=== PATIENT | female | born 1980 | race Caucasian/White ===

== ENCOUNTER 2016-10-20 09:52 | Emergency (ER) | payer BC ==
--- NOTE | 2016-10-20 11:57 | ER Document Report ---
HPI - HPI Patient complains to provider of: neck pain Onset: This morning Onset/Duration: Sudden Pain Level: 3 Context: Patient presents to the emergency department with complaints of right-sided neck pain. Patient reports she reached down to grab a lbottle of water this morning and felt pain in the right side of her neck. She took her Soma, Valium , and Motrin before coming to the emergency department. 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 She denies trauma. She denies other symptoms such as fever vomiting diarrhea. Patient reports it hurts when she turns her head to the right. Associated Symptoms: None Exacerbated by: Movement Relieved by: Denies Similar symptoms previously: No Recently seen / treated by doctor: No - REPRODUCTIVE Reproductive: DENIES: : - DERM Skin Color: Normal Past Medical History - General Information source: Patient Last Menstrual Period: 10/14/16 - Social History Smoking Status: Former Smoker Chew tobacco use (# tins/day): No Frequency of alcohol use: None Drug Abuse: None Lives with: Family Family History: Reviewed & Not Pertinent Patient has suicidal ideation: No Patient has homicidal ideation: No Renal/ Medical History: Denies: Hx Peritoneal Dialysis Musculoskeltal Medical History: Reports Hx Arthritis - RA, chronic pain Psychiatric Medical History: Reports: Hx Anxiety, Hx Depression Past Surgical History: Reports: Hx Appendectomy, Hx Orthopedic Surgery - x2 - Immunizations Hx Diphtheria, Pertussis, Tetanus Vaccination: Yes Vertical Provider Document - CONSTITUTIONAL Agree With Documented VS: Yes Exam Limitations: No Limitations General Appearance: WD/WN, Mild Distress - winces when turning head to the right - INFECTION CONTROL TRAVEL OUTSIDE OF THE [place] IN LAST 30 DAYS: No - HEENT HEENT: Atraumatic, Normocephalic - NECK Neck: Normal Inspection - No obvious deformity noted no vertebral tenderness complaints of right trapezius neck pain no erythema no warmth no swelling no weakness noted in reports pain when turning her head to the right. 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 She reports she tried to call Dr. Garnett but he did not have an opening. Patient was instructed to continue her medications as prescribed. (soma, valium, motrin) She was also instructed to follow up with Dr. Ruiz. - Vital Signs Vital signs: Temp Pulse Resp BP Pulse Ox 97.6 F 100 16 117/78 98 10/20/16 09:59 10/20/16 09:59 10/20/16 09:59 10/20/16 09:59 10/20/16 09:59 Discharge - Discharge Clinical Impression: Neck pain Condition: Stable Disposition: HOME, SELF-CARE Instructions: Neck Injury (Cervical Strain) ([facility]) Additional Instructions: *You have been evaluated for neck pain, strain *Rest/ alternate ice packs with warm packs *Follow up with Dr Ruiz tomorrow, call for an appointment *Take your medication as prescribed *Return to ED for worsening condition, changes, needs Referrals: TAHIRA COX MD [Primary Care Provider] - Follow up in 3-5 days
[2016-10-20 12:10] VITALS: BP 104/70
== END 2016-10-20 12:10 | disposition home or self-care (01) ==
LOC: ER 09:52
DX: M54.2 Cervicalgia (principal); M06.9 Rheumatoid arthritis, unspecified; Z87.891 Personal history of nicotine dependence; Z79.899 Other long term (current) drug therapy; Z79.1 Long term (current) use of non-steroidal anti-inflammatories (NSAID)
CPT/HCPCS: 99283

== ENCOUNTER 2016-11-28 08:44 | Emergency (ER) | payer BC ==
[2016-11-28] MEDS ORDERED: NORMAL SALINE 1000 ML 1,000 ML IV ONE ×2 (09:28)
--- NOTE | 2016-11-28 09:28 | ER Document Report ---
ED GI/ - General Chief Complaint: Abdominal Pain Stated Complaint: ABDOMINAL PAIN Time seen by provider: 09:21 Mode of Arrival: Ambulatory Information source: Patient Notes: 35-year-old female presents to ED for right upper quadrant abdominal pain radiating to the center of the abdomen with nausea vomiting. States she's had this pain for about 3 weeks she was supposed to go and get ultrasound blood work done for her primary doctor but had not gotten it done yet last night she started vomiting she says the pain is worse today. She was told to come him to the emergency room. Last menstrual period was 11/13/2016 TRAVEL OUTSIDE OF THE [place] IN LAST 30 DAYS: No - HPI Patient complains to provider of: Abdominal pain, Vomiting Onset: Other - 3 weeks worse the last couple days Timing/Duration: Gradual Quality of pain: Cramping, Sharp Severity at maximum: Moderate Severity in ED: Moderate Pain Level: 3 Location: RUQ Vaginal bleeding (Compared to normal period): None LMP: 11/13/2016 Associated symptoms: Nausea, Vomiting Exacerbated by: Food Relieved by: Denies Similar symptoms previously: Yes Recently seen / treated by doctor: Yes - Related Data Allergies/Adverse Reactions: aspirin [Aspirin] Allergy (Verified 11/28/16 08:47) codeine [Codeine] Allergy (Verified 11/28/16 08:47) hydrocodone bitartrate [From Vicodin] Allergy (Verified 11/28/16 08:47) hydromorphone HCl [From Dilaudid] Allergy (Verified 11/28/16 08:47) sulfasalazine [Sulfasalazine] Allergy (Verified 11/28/16 08:47) duloxetine HCl [From Cymbalta] Adverse Reaction (Verified 11/28/16 08:47) Hallucinations gabapentin [Gabapentin] Adverse Reaction (Verified 11/28/16 08:47) Hallucinations pregabalin [From Lyrica] Adverse Reaction (Verified 11/28/16 08:47) Hallucinations Past Medical History - General Information source: Patient - Social History Smoking Status: Former Smoker Frequency of alcohol use: None Drug Abuse: None Lives with: Family Family History: Arthritis, DM, Hyperlipidemia, Hypertension, Malignancy Patient has suicidal ideation: No Patient has homicidal ideation: No - Past Medical History Cardiac Medical History: Reports: Other - Schulz, orthostatic hypotension Pulmonary Medical History: Reports: None EENT Medical History: Reports: None Neurological Medical History: Reports: None Endocrine Medical History: Reports: None Renal/ Medical History: Reports: None Malignancy Medical History: Reports: None GI Medical History: Reports: None Musculoskeltal Medical History: Reports Hx Arthritis - RA, chronic pain Skin Medical History: Reports None Psychiatric Medical History: Reports: Hx Anxiety, Hx Depression Traumatic Medical History: Reports: None Infectious Medical History: Reports: None Past Surgical History: Reports: Hx Appendectomy, Hx Gynecologic Surgery - Leap procedure, Hx Orthopedic Surgery - Ganglion cyst and knee surgery to straighten her knee caps x2 - Immunizations Hx Diphtheria, Pertussis, Tetanus Vaccination: Yes Review of Systems - Review of Systems Constitutional: No symptoms reported EENT: No symptoms reported Cardiovascular: No symptoms reported Respiratory: No symptoms reported Gastrointestinal: Abdominal pain, Nausea, Vomiting Genitourinary: No symptoms reported Female Genitourinary: No symptoms reported Musculoskeletal: No symptoms reported Skin: No symptoms reported Hematologic/Lymphatic: No symptoms reported Neurological/Psychological: No symptoms reported Physical Exam - Vital signs Vitals: Temp Pulse Resp BP Pulse Ox 98.2 F 97 18 125/80 99 11/28/16 08:47 11/28/16 08:47 11/28/16 08:47 11/28/16 08:47 11/28/16 08:47 Interpretation: Normal - General General appearance: Appears well, Alert - HEENT Head: Normocephalic, Atraumatic Eyes: Normal Pupils: PERRL - Respiratory Respiratory status: No respiratory distress Chest status: Nontender Breath sounds: Normal Chest palpation: Normal - Cardiovascular Rhythm: Regular Heart sounds: Normal auscultation Murmur: No - Abdominal Inspection: Normal Distension: No distension Bowel sounds: Normal Tenderness: Tender - Right upper condyle quadrant to the Center Organomegaly: No organomegaly - Back Back: Normal, Nontender - Extremities General upper extremity: Normal inspection, Nontender, Normal color, Normal ROM , Normal temperature General lower extremity: Normal inspection, Nontender, Normal color, Normal ROM , Normal temperature, Normal weight bearing. No: Woody's sign - Neurological Neuro grossly intact: Yes Cognition: Normal Orientation: AAOx4 Marcelo Coma Scale Eye Opening: Spontaneous [place] Coma Scale Verbal: Oriented [place] Coma Scale Motor: Obeys Commands Marcelo Coma Scale Total: 15 Speech: Normal Motor strength normal: LUE, RUE, LLE, RLE Sensory: Normal - Psychological Associated symptoms: Normal affect, Normal mood - Skin Skin Temperature: Warm Skin Moisture: Dry Skin Color: Normal Course - Re-evaluation Re-evalutation: 11/28/16 12:[address] carrion concerning the symptoms and her history and ultrasound limited study of abdomen was ordered. Labs and ultrasound results discussed with patient and written reports given to patient and for them to follow-up with the primary doctor Angie and the GI doctor. Patient was treated with IV fluids and IV Zofran and Toradol and IV morphine. Patient was discharged home with small prescription for Percocet and instructed to please call Angie today - Vital Signs Vital signs: Temp Pulse Resp BP Pulse Ox 98.2 F 97 18 125/80 99 11/28/16 08:47 11/28/16 08:47 11/28/16 08:47 11/28/16 08:47 11/28/16 08:47 - Laboratory Result Diagrams: 11/28/16 09:30 11/28/16 09:30 Laboratory results interpreted by me: 11/28/16 11/28/16 09:30 10:05 Hct 34.9 L Seg Neutrophils % 34.1 L Lymphocytes % 52.4 H Urine Ascorbic Acid 40 H - Diagnostic Test Radiology reviewed: Image reviewed, Reports reviewed Discharge - Discharge Clinical Impression: Upper abdominal pain Condition: Stable Disposition: HOME, SELF-CARE Instructions: Evaluation of Upper Abdominal Pain ([facility]) Additional Instructions: NORMAL EXAM AND WORKUP: At this time, your examination and workup show no significant abnormality. No significant abnormal physical findings are noted. All laboratory, EKG, and imaging (x-ray, CT scans, ultrasound) studies that were ordered show no significant abnormality. Although your examination and all studies that were ordered showed no significant abnormal finding, there are no examinations and no studies that are 100% accurate. There is always the possibility that some abnormality could exist and not be detected with physical examination or within the limits and capabilities of laboratory and other studies. You should return or follow up as you were instructed on your visit today for further evaluation if your symptoms do not resolve. TORADOL INJECTION: You have been given an injection of ketorolac tromethamine (Toradol). This is an excellent, safe drug for pain control. It also has potent antiinflammatory action. You should have significant pain relief within about one hour. Toradol is not addicting and is non-sedating. It does not interfere with driving or work. Call or return if you develop itching, hives, shortness of breath, or rash. PAIN MEDICATION INJECTION: You have received an injection of a pain medication. You should experience significant pain relief within 45 minutes. This drug is a narcotic - - it will impair your judgement, slow your reaction time and make you sleepy ( as well as relieve your pain). Narcotics also can cause nausea. You should not drive, work with machinery, or perform any task requiring mental alertness until all effects of the medication are gone -- six to eight hours. Do not take any alcohol, or sedatives, and do not take any other medication without checking with your physician. AN[place] MEDICATION: You have been given a medication to suppress nausea and vomiting. This type of medication can be given as a shot, pill, or suppository. It will usually last for many hours. Pills and shots usually last six to eight hours, suppositories last about 12 hours. For the typical illness, only one or two doses of the medication may be necessary. Mild lightheadedness may occur. This type of medicine can cause drowsiness. Do not drive or operate dangerous machinery while under its influence. Do not mix with alcohol. See your doctor at once if you have muscle spasms or tightness, or uncontrollable motions (particularly of the neck, mouth, or jaw). Persistent vomiting or severe lightheadedness should also be evaluated by the physician. Intravenous (IV) Fluids As part of your care today, you received intravenous (IV) fluids. IV fluids are administered to patients who are dehydrated or to those who have certain chemical (electrolyte) abnormalities that need correcting. Oral Narcotic Medication You have been given a prescription for pain control. This medication is a narcotic. It's best taken with food, as nausea can result if taken on an empty stomach. Don't operate machinery or drive within six hours of taking this medication. Do not combine this medicine with alcohol, or with any medication which can cause sedation (such as cold tablets or sleeping pills) unless you get permission from the physician. Narcotics tend to cause constipation. If possible, drink plenty of fluids and eat a diet high in fiber and fruits. FOLLOW-UP CARE: If you have been referred to a physician for follow-up care, call the physician s office for an appointment as you were instructed or within the next two days. If you experience worsening or a significant change in your symptoms, notify the physician immediately or return to the Emergency Department at any time for re-evaluation. Prescriptions: Oxycodone HCl/Acetaminophen [Percocet 5-325 mg Tablet] 1 tab PO Q6HP PRN #7 tablet PRN Reason: Ondansetron [Zofran Odt 4 mg Tablet] 1 tab PO Q6H #15 tab.[email or web address] Referrals: TAHIRA COX MD [Primary Care Provider] - Follow up as needed
[2016-11-28] MEDS ORDERED: ONDANSETRON HCL INJ/PF 4 MG/2 ML SDV IV ONE (09:29)
[2016-11-28 09:51] LABS: ABSOLUTE EOSINOPHILS # (AUTO) 0.1 10^3/uL (0.0-0.6); ABSOLUTE LYMPHOCYTES (AUTO) 2.8 10^3/uL (0.5-4.7); ABSOLUTE MONOCYTES (AUTO) 0.6 10^3/uL (0.1-1.4); ABSOLUTE NEUT (AUTO) 1.8 10^3/uL (1.7-8.2); BASOPHILS % (AUTO) 0.9 % (0-2); EOSINOPHILS % (AUTO) 1.9 % (0-6); HEMATOCRIT 34.9 % (36.0-47.0); HGB HCT DIFFERENCE 1.1; LYMPHOCYTES % (AUTO) 52.4 % (13-45); MEAN CORPUSCULAR HGB CONC 34.5 g/dL (32.0-36.0); MEAN CORPUSCULAR VOLUME 93 fl (80-97); MONOCYTES % (AUTO) 10.7 % (3-13); RED BLOOD COUNT 3.76 10^6/uL (3.72-5.28); RED CELL DISTRIBUTION WIDTH 13.3 % (11.5-14.0); SEGMENTED NEUTROPHILS % (AUTO) 34.1 % (42-78); WHITE BLOOD COUNT 5.4 10^3/uL (4.0-10.5)
[2016-11-28 10:20] LABS: ALANINE AMINOTRANSFERASE 17 U/L (9-52); ALBUMIN 4.1 g/dL (3.5-5.0); ALKALINE PHOSPHATASE 77 U/L (38-126); ANION GAP 14 (5-19); ASPARTATE AMINO TRANSFERASE 23 U/L (14-36); BILIRUBIN,DIRECT 0.3 mg/dL (0.0-0.4); BILIRUBIN,TOTAL 0.4 mg/dL (0.2-1.3); BLOOD UREA NITROGEN 16 mg/dL (7-20); CALCIUM 9.2 mg/dL (8.4-10.2); CARBON DIOXIDE 28 mmol/L (22-30); CHLORIDE 102 mmol/L (98-107); CREATININE RESULT 0.67 mg/dL (0.52-1.25); GLUCOSE 89 mg/dL (75-110); LIPASE 96.7 U/L (23-300); POTASSIUM 4.2 mmol/L (3.6-5.0); SODIUM 143.9 mmol/L (137-145); TOTAL PROTEIN 7.2 g/dL (6.3-8.2)
[2016-11-28] MEDS ORDERED: ONDANSETRON HCL INJ/PF 4 MG/2 ML SDV ONE (10:28)
[2016-11-28 10:31] LABS: APPEARANCE,URINE SLIGHTLY-CLOUDY; BILIRUBIN,URINE NEGATIVE (NEGATIVE); GLUCOSE, URINE NEGATIVE (NEGATIVE); KETONES,URINE NEGATIVE (NEGATIVE); LEUKOCYTE ESTERASE,URINE NEGATIVE (NEGATIVE); NITRITE,URINE NEGATIVE (NEGATIVE); PROTEIN,URINE NEGATIVE (NEGATIVE); URINE SPECIFIC GRAVITY 1.023; UROBILINOGEN,URINE NEGATIVE mg/dL (<2.0)
[2016-11-28] MEDS ORDERED: KETOROLAC TROMETHAMINE INJ/PF 30 MG/1 ML SDV IV ONE (11:13)
[2016-11-28] MEDS ORDERED: MORPHINE SULFATE 10 MG/ML INJ IV ONE (11:59)
[2016-11-28 12:47] VITALS: BP 115/69
== END 2016-11-28 12:47 | disposition home or self-care (01) ==
LOC: ER 08:44
DX: R10.11 Right upper quadrant pain (principal); R10.10 Upper abdominal pain, unspecified; R11.2 Nausea with vomiting, unspecified; Z87.891 Personal history of nicotine dependence; Z88.6 Allergy status to analgesic agent
CPT/HCPCS: 99284; 96374; 96375; 36415; 83690; 84703; 85025; 80053; 81001; 76705; J1885; J2270; J2405; J7030

== ENCOUNTER → 2016-12-08 | Outpatient (CLI) | payer BC | LOC: RAD 08:56 | PROVIDERS: ATTEND Internal Medicine | DX: K82.8 Other specified diseases of gallbladder (principal) | CPT/HCPCS: 78227; A9537; Q9969; J2805 ==

== ENCOUNTER → 2016-12-14 | Outpatient (CLI) | payer BC | LOC: OD 11:00 | PROVIDERS: ATTEND Internal Medicine Clinical Cardiac Electrophysiology | DX: R00.0 Tachycardia, unspecified (principal); R00.2 Palpitations; M06.9 Rheumatoid arthritis, unspecified | CPT/HCPCS: 36415; 84436; 84443 ==

== ENCOUNTER 2017-01-24 15:50 | Day surgery (SDC) | payer BC ==
[~2017-01-24 15:50] MED LIST: EPINEPHRINE INJ 1 MG/10 ML DISP.SYRIN ONE; FENTANYL CITRATE INJ/PF 100 MCG/2 ML AMPUL ONE; FLUMAZENIL INJ 0.5 MG/5 ML VIAL IV ONE; GLUCAGON,HUMAN RECOMB 1 MG INJ ONE; NALOXONE HCL INJ/PF 0.4 MG/1 ML SDV ONE
[2017-01-24] MEDS: MIDAZOLAM 2 MG/2 ML INJ ONE ×3 (16:41→16:48)
--- NOTE | 2017-01-24 17:15 | Operative Report ---
Operative Report DATE OF SURGERY: 01/24/17 Operative Report: Pre-op diagnosis: Epigastric pain and nausea Post-op diagnosis: Mild antral gastritis Surgery: Esophagogastroduodenoscopy with biopsy Medications: Versed 4mg Fentanyl 100mcg IV push Tissue removed: Antral biopsy for pathology Procedure: After informed consent obtained from patient, the throat was sprayed with Hurricane and conscious sedation was achieved. The upper endoscope was inserted into the esophagus under direct vision and advanced into the stomach. The duodenum was entered and examined to the second part. Endoscope was then slowly pulled out of the patient as the mucosa was examined into details. Patient tolerated procedure well. Findings Esophagus: Normal Z-line at: 36 cm Antrum: Mild erythema Body: Normal Fundus: Normal Duodenum first part: Normal Duodenum second part: Normal Plan: Await pathology. Continue omeprazole daily OPERATION: .
--- NOTE | 2017-01-24 18:01 | PDOC DISCHARGE SUMMARY ---
Discharge Summary (SDC) - Discharge Final Diagnosis: Gastritis Date of Surgery: 01/24/17 Forms: Anesthesia D/C Instructions, Discharge POC-Surgical Service Treatment or Instructions: Followup with MD as previously instructed. Referrals: NICOLETTE MARTINES MD [ACTIVE STAFF] - Respiratory Treatments at Home: Deep Breathing/Coughing Discharge Activity: Activity As Tolerated Home Care Assistance: None Needed Report the Following to Your Physician Immediately: Shortness of Breath, Nausea , Vomiting, Increase in Pain, Fever over 101 Degrees, Unusual Bleeding, Redness , Swelling, Warmth
[2017-01-24 18:04] VITALS: BP 117/81
== END 2017-01-24 18:20 | disposition home or self-care (01) ==
LOC: END 15:50
PROVIDERS: ATTEND Internal Medicine Gastroenterology
PROC: 0DB68ZX Excision of Stomach, Via Natural or Artificial Opening Endoscopic, Diagnostic (ICD-10-PCS; principal; 2017-01-24 16:00)
DX: K31.9 Disease of stomach and duodenum, unspecified (principal); M06.9 Rheumatoid arthritis, unspecified; I95.1 Orthostatic hypotension; E66.3 Overweight; Z79.899 Other long term (current) drug therapy; Z88.6 Allergy status to analgesic agent; Z88.5 Allergy status to narcotic agent; Z88.2 Allergy status to sulfonamides; Z68.28 Body mass index [BMI] 28.0-28.9, adult
CPT/HCPCS: 43239; 88305 ×2; 88312 ×2; J2250; J3010; J0171; J1610; J2310; J3490

== ENCOUNTER 2018-05-10 12:40 | Emergency (ER) | payer BC ==
[2018-05-10 13:04] VITALS: BP 111/71
--- NOTE | 2018-05-10 13:48 | ER Document Report ---
ED Wound - General Chief Complaint: Laceration Stated Complaint: LIP INJURY Time Seen by Provider: 05/10/18 13:35 Mode of Arrival: Ambulatory Information source: Patient Notes: Chief complaint: Lip laceration History of complain:( obtained from----patient) 37 years old female presents today with a small laceration of the right upper lip sustained by an cat nail accidentally. Her cat fully immunized. Minimal bleeding prior to coming to the ED. Her tetanus was in 2009 Onset: Just prior to arrival sudden Duration: Just prior to arrival Severity: Mild Quality: Mild Context: Exacerbating factor and relieving factors: None REVIEW OF SYSTEMS: CONSTITUTIONAL : Denies fever, chills, or sweats. Denies recent illness. EENT: Denies eye, ear, throat, or mouth pain or symptoms. Denies nasal or sinus congestion or discharge. Denies throat, tongue, or mouth swelling or difficulty swallowing. CARDIOVASCULAR: Denies chest pain. Denies palpitations or racing or irregular heart beat. Denies ankle edema. RESPIRATORY: Denies cough, cold, or chest congestion. Denies shortness of breath, difficulty breathing, or wheezing. GASTROINTESTINAL: Denies distention. Denies nausea, vomiting, or diarrhea. Denies blood in vomitus, stools, or per rectum. Denies black, tarry stools. Denies constipation. GENITOURINARY: Denies difficulty urinating, painful urination, burning, frequency, blood in urine, or discharge. FEMALE GENITOURINARY: Denies vaginal bleeding, heavy or abnormal periods, irregular periods. Denies vaginal discharge or odor. MUSCULOSKELETAL: Denies back or neck pain or stiffness. Denies joint pain or swelling. SKIN: Denies rash, lesions or sores. HEMATOLOGIC : Denies easy bruising or bleeding. LYMPHATIC: Denies swollen, enlarged glands. NEUROLOGICAL: Denies confusion or altered mental status. Denies passing out or loss of consciousness. Denies dizziness or lightheadedness. Denies headache. Denies weakness or paralysis or loss of use of either side. Denies problems with gait or speech. Denies sensory loss, numbness, or tingling. Denies seizures. PSYCHIATRIC: Denies anxiety or stress. Denies depression, suicidal ideation, or homicidal ideation. ALL OTHER SYSTEMS REVIEWED AND NEGATIVE. PHYSICAL EXAMINATION: GENERAL: Well-appearing, well-nourished and in no acute distress. HEAD: Atraumatic, normocephalic. EYES: Pupils equal round and reactive to light, extraocular movements intact, conjunctiva are normal. ENT: Nares patent, oropharynx clear without exudates. Moist mucous membranes. NECK: Normal range of motion, supple without lymphadenopathy LUNGS: Breath sounds clear to auscultation bilaterally and equal. No wheezes rales or rhonchi. HEART: Regular rate and rhythm without murmurs ABDOMEN: Soft, nontender, nondistended abdomen. No guarding, no rebound. No masses appreciated. Examination of genitals-deferred Musculoskeletal: Normal range of motion, no pitting or edema. No cyanosis. NEUROLOGICAL: Cranial nerves grossly intact. Normal speech, normal gait. Normal sensory, motor exams PSYCH: Normal mood, normal affect. SKIN: Skin over the right upper lip has a small laceration of 4 mm running through the vermilion line. Small scratch on the left upper lip Dictation was performed using [employer] voice recognition software TRAVEL OUTSIDE OF THE [place] IN LAST 30 DAYS: No - HPI Notes: Dictated - Related Data Allergies/Adverse Reactions: aspirin [Aspirin] Allergy (Verified 01/20/17 17:06) codeine [Codeine] Allergy (Verified 01/20/17 17:06) hydrocodone bitartrate [From Vicodin] Allergy (Verified 01/20/17 17:06) hydromorphone HCl [From Dilaudid] Allergy (Verified 01/20/17 17:06) sulfasalazine [Sulfasalazine] Allergy (Verified 01/20/17 17:06) dicyclomine Adverse Reaction (Verified 01/20/17 17:07) RASH, VOMITING duloxetine HCl [From Cymbalta] Adverse Reaction (Verified 01/20/17 17:06) Hallucinations gabapentin [Gabapentin] Adverse Reaction (Verified 01/20/17 17:06) Hallucinations pregabalin [From Lyrica] Adverse Reaction (Verified 01/20/17 17:06) Hallucinations Past Medical History - Social History Smoking Status: Never Smoker Frequency of alcohol use: Rare Drug Abuse: None Family History: Arthritis, DM, Hyperlipidemia, Hypertension, Malignancy - Past Medical History Cardiac Medical History: Denies: Hx Coronary Artery Disease, Hx Heart Attack, Hx Hypertension Pulmonary Medical History: Reports: Hx Pneumonia Denies: Hx Asthma, Hx Bronchitis, Hx COPD Neurological Medical History: Denies: Hx Cerebrovascular Accident, Hx Seizures Renal/ Medical History: Denies: Hx Peritoneal Dialysis Musculoskeletal Medical History: Reports Hx Arthritis - RA, chronic pain Psychiatric Medical History: Reports: Hx Anxiety, Hx Depression Past Surgical History: Reports: Hx Appendectomy, Hx Gynecologic Surgery - Leap procedure, Hx Oral Surgery - dung knees (98&99), Hx Orthopedic Surgery - Ganglion cyst and knee surgery to straighten her knee caps x2. Denies: Hx Hysterectomy - Immunizations Hx Diphtheria, Pertussis, Tetanus Vaccination: Yes Review of Systems - Review of Systems Notes: Dictated Physical Exam - Vital signs Vitals: Temp Pulse Resp BP Pulse Ox 97.6 F 101 H 18 111/71 98 05/10/18 13:03 05/10/18 13:03 05/10/18 13:03 05/10/18 13:03 05/10/18 13:03 - Notes Notes: Dictated Course - Vital Signs Vital signs: Temp Pulse Resp BP Pulse Ox 97.6 F 101 H 18 111/71 98 05/10/18 13:03 05/10/18 13:03 05/10/18 13:03 05/10/18 13:03 05/10/18 13:03 Procedures - Laceration/Wound Repair Face Time completed: 13:45 - Left upper lip Wound length (cm): 0.5 Wound's Depth, Shape: Superficial, Linear Wound explored: Clean Wound Debrided: Minimal Wound Repaired With: Sutures Suture Size/Type: 5:0 Discharge - Discharge Clinical Impression: Lip laceration Qualifiers: Encounter type: initial encounter Qualified Code(s): S01.511A - Laceration without foreign body of lip, initial encounter Condition: Fair Disposition: HOME, SELF-CARE Instructions: Laceration Care ([facility]) Prescriptions: Doxycycline Hyclate 100 mg PO BID #20 tablet Referrals: NICOLETTE MARTINES MD [Primary Care Provider] - Follow up as needed
== END 2018-05-10 13:49 | disposition home or self-care (01) ==
LOC: ER 12:40
DX: S01.511A Laceration without foreign body of lip, initial encounter (principal); W55.03XA Scratched by cat, initial encounter; Z88.6 Allergy status to analgesic agent; Z88.5 Allergy status to narcotic agent; Z88.8 Allergy status to other drugs, medicaments and biological substances
CPT/HCPCS: 99282

== ENCOUNTER → 2018-08-17 | Outpatient (CLI) | payer BC | LOC: OD 09:14 | PROVIDERS: ATTEND Internal Medicine | DX: R55 Syncope and collapse (principal); G90.8 Other disorders of autonomic nervous system | CPT/HCPCS: 36415; 82383; 82542; 82607; 82746; 83090; 83921; 86235 ==

== ENCOUNTER 2019-08-21 10:22 | Emergency (ER) | payer BC ==
--- NOTE | 2019-08-21 10:57 | ER Document Report ---
HPI - HPI Patient complains to provider of: BODY ACHES Time Seen by Provider: 08/21/19 10:44 Onset: Yesterday Onset/Duration: Sudden Quality of pain: Achy Pain Level: 0 Context: 38-year-old female presents with complaints of body aches just wanting to rest that started yesterday. She reports she started with a cough on Monday. Patient reports her son was positive for the flu. She is not sure if they did a flu test or just diagnosed with the flu based on his symptoms. She did not receive her influenza vaccine. Denies fever vomiting diarrhea. She denies pain with voiding. Reports she has been drinking lots and lots of water. Patient keeps moaning reporting her body hurts and she just wants to go home go to sleep. Associated Symptoms: Nonproductive cough Exacerbated by: Denies Relieved by: Denies Similar symptoms previously: No Recently seen / treated by doctor: No - REPRODUCTIVE Reproductive: DENIES: : Past Medical History - General Information source: Patient - Social History Smoking Status: Never Smoker Chew tobacco use (# tins/day): No Frequency of alcohol use: None Drug Abuse: None Lives with: Family Family History: Arthritis, DM, Hyperlipidemia, Hypertension, Malignancy Patient has suicidal ideation: No Patient has homicidal ideation: No - Past Medical History Cardiac Medical History: Reports: Other - POTS Denies: Hx Coronary Artery Disease, Hx Heart Attack, Hx Hypertension Pulmonary Medical History: Reports: Hx Pneumonia Denies: Hx Asthma, Hx Bronchitis, Hx COPD Neurological Medical History: Denies: Hx Cerebrovascular Accident, Hx Seizures Renal/ Medical History: Denies: Hx Peritoneal Dialysis Musculoskeletal Medical History: Reports Hx Arthritis - RA, chronic pain, 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 Denies: Hx Hysterectomy - Immunizations Hx Diphtheria, Pertussis, Tetanus Vaccination: Yes Vertical Provider Document - CONSTITUTIONAL Agree With Documented VS: Yes Exam Limitations: No Limitations General Appearance: WD/WN, No Apparent Distress - MOANING - INFECTION CONTROL TRAVEL OUTSIDE OF THE [place] IN LAST 30 DAYS: No - HEENT HEENT: Atraumatic, Normal ENT Exam, Normocephalic. negative: Conjuctival Injection, Pharyngeal Erythema - NECK Neck: Supple - RESPIRATORY Respiratory: Breath Sounds Normal, No Respiratory Distress - MUSCULOSKELETAL/EXTREMETIES Musculoskeletal/Extremeties: NIURKA ZAFAR - NEURO Level of Consciousness: Awake, Alert, Appropriate Motor/Sensory: No Motor Deficit - DERM Integumentary: Warm, Dry, No Rash Course - Re-evaluation Re-evalutation: 08/21/19 10:56 Patient reports she just wants to lay down go to sleep. Reports she is very tired. Influenza test and chest x-ray ordered. 08/21/19 13:47 Flu test and chest x-ray negative. Patient looks like she does not feel good but nontoxic looking. She is drinking p.o. fluids. No fever vomiting or diarrhea. She was instructed on all results. Instructed to monitor symptoms to return for worsening symptoms. She verbalized understanding. Chest X-Ray 08/21/19 10:51 IMPRESSION: No acute cardiopulmonary process. - Vital Signs Vital signs: Temp Pulse Resp BP Pulse Ox 98.7 F 76 20 113/70 99 08/21/19 10:29 08/21/19 10:29 08/21/19 10:29 08/21/19 10:29 08/21/19 10:29 - Diagnostic Test Radiology reviewed: Image reviewed, Reports reviewed Discharge - Discharge Clinical Impression: Cough, Body aches Condition: Stable Disposition: HOME, SELF-CARE Instructions: Use of Jkxs-Ein-Fmrojzr Ibuprofen ([facility]) Additional Instructions: *You have been evaluated for Flu symptoms, body aches *Your flu test was negative today. Your chest x-ray was negative for pneumonia *Increase fluid intake as discussed *Take ibuprofen as indicated for pain *Monitor your temperature, take Tylenol as indicated *Follow up with a primary care provider within one week *Return to ED for worsening condition, changes, needs, concerns, needs Referrals: TAHIRA COX MD [Primary Care Provider] - Follow up in 1 week
[2019-08-21 11:42] LABS: A TYPE INFLUENZA AG NEGATIVE (NEGATIVE)
[2019-08-21 11:43] LABS: B INFLUENZA AG NEGATIVE (NEGATIVE)
--- NOTE | 2019-08-21 11:56 | RADIOLOGY REPORT (SQ) ---
EXAM DESCRIPTION: CHEST 2 VIEWS COMPLETED DATE/TIME: 08/21/2019 11:39 am REASON FOR STUDY: cough COMPARISON: PA and lateral views of the chest from 09/02/2014. EXAM PARAMETERS: NUMBER OF VIEWS: two views TECHNIQUE: PA and lateral views of the chest were obtained. RADIATION DOSE: NA LIMITATIONS: none FINDINGS: LUNGS AND PLEURA: No consolidation, pleural effusion or pneumothorax. MEDIASTINUM AND HILAR STRUCTURES: No mediastinal or hilar contour abnormality. HEART AND VASCULAR STRUCTURES: The cardiac silhouette and pulmonary vasculature are within normal chan its. BONES: No acute findings. HARDWARE: None in the chest. OTHER: No other finding. IMPRESSION: No acute cardiopulmonary process. TECHNICAL DOCUMENTATION: JOB ID: [id number] [employer]- All Rights Reserved Reading location - IP/workstation name: [email or web address]
[2019-08-21 12:31] VITALS: BP 92/67
== END 2019-08-21 12:31 | disposition home or self-care (01) ==
LOC: ER 10:22
DX: R05 Cough (principal); M79.10 Myalgia, unspecified site
CPT/HCPCS: 71046; 87804; 99283

== ENCOUNTER → 2020-09-05 | Outpatient (CLI) | payer BC ==
[~2020-09-05] MED LIST changes: +COVID-19 VACCINE (PFIZER)/PF 30 MCG/0.3 ML VIAL IM ONE; -EPINEPHRINE INJ 1 MG/10 ML DISP.SYRIN ONE; +EPINEPHRINE INJ/PF 1 MG/1 ML AMPULE IM PRN; -FENTANYL CITRATE INJ/PF 100 MCG/2 ML AMPUL ONE; -FLUMAZENIL INJ 0.5 MG/5 ML VIAL IV ONE; -GLUCAGON,HUMAN RECOMB 1 MG INJ ONE; -NALOXONE HCL INJ/PF 0.4 MG/1 ML SDV ONE
== END ==
LOC: EMPHEALTH 14:21
PROVIDERS: ATTEND Internal Medicine
DX: Z23 Encounter for immunization (principal)
CPT/HCPCS: 91300